=== PATIENT | male | born 1990 | race American Indian/Alaskan Native ===

== ENCOUNTER 2016-06-08 16:52 | Emergency (ER) | payer MEDICAID, OTHER ==
--- NOTE | 2016-06-08 16:56 | EDM.PDOC ---
ED HPI SEPSIS - General Chief Complaint: Fever Stated Complaint: FROM CLINIC Time Seen by Provider: 06/08/16 16:56 Source of Information: Reports: Patient, Old records, Provider (Dr. Campbell), RN, RN notes reviewed History Limitations: Reports: No limitations - History of Present Illness INITIAL COMMENTS - FREE TEXT/NARRATIVE: Patient developed a fever while having his dialysis today. He was sent to the [facility] and under the direction Dr. Palacio (oncologist) via telephone from [place]. He received Rocephin 1 gram IV while at the clinic. Dr. Palacio made arrangements for the patient to be sent to [facility] [place]. On arrival to the emergency room the patient reports fever since dialysis today. Admits to feeling fatigued. Denies any other symptoms. Symptom Onset Date: 06/08/16 Timing/Duration: Reports: Getting worse Severity: severe Improves with: Reports: None Worsens with: Reports: None Associated Symptoms: Reports: no other symptoms - Related Data Allergies/ADRs: Allergies Allergy/AdvReac Type Severity Reaction Status Date / Time paroxetine Allergy Cannot Verified 05/16/16 14:46 Remember sulfamethoxazole Allergy Cannot Verified 05/16/16 14:46 [From ] Remember trimethoprim [From ] Allergy Cannot Verified 05/16/16 14:46 Remember Home Meds: Home Meds Divalproex Sodium [Depakote] 1,000 mg PO BID 01/22/15 [History] Acetaminophen 1,000 mg PO Q6H PRN 08/19/15 [History] Calcium Acetate [PhosLo] 2 tab PO TIDMEALS 08/19/15 [History] Cholecalciferol (Vitamin D3) [Vitamin D3] 2,000 unit PO DAILY PRN 08/19/15 [ History] Lacosamide [Vimpat] 50 mg PO BID 08/19/15 [History] Magnesium Oxide 400 mg PO DAILY 08/19/15 [History] atorvaSTATin [Lipitor] 20 mg PO BEDTIME 12/21/15 [History] Past Medical History HEENT History: Reports: None Cardiovascular History: Reports: Hypertension Respiratory History: Reports: None Gastrointestinal History: Reports: None Genitourinary History: Reports: Dialysis, Other (see below) (Nephrotic syndrome. ESRD or dialysis. Failure of transplanted kidney.) Other Genitourinary History: kidney transplant, kidney biopsy Musculoskeletal History: Reports: None Neurological History: Reports: Seizure Other Neuro History: Last seizure Feb 2014 Psychiatric History: Reports: None Endocrine/Metabolic History: Reports: Obesity/BMI 30+ Hematologic History: Reports: None Immunologic History: Reports: None Oncologic (Cancer) History: Reports: Lymphoma Dermatologic History: Reports: None - Infectious Disease History Infectious Disease History: Reports: Chicken pox - Past Surgical History Cardiovascular Surgical History: Reports: Vascular surgery (V fistula x2.) GI Surgical History: Reports: Other (see below) (hernia repair and splenectomy) Other GI Surgeries/Procedures: splenectomy Other Male Surgeries/Procedures: KIDNEY TRANSPLANT 1995 Social & Family History - Family History Cardiac: Reports: CAD, High cholesterol, Hypertension Respiratory: Reports: COPD GI: Reports: Cholelithiasis Endocrine/Metabolic: Reports: Diabetes, type II, Obesity/MBI 30+ - Tobacco Use Smoking Status *Q: Never Smoker Second Hand Smoke Exposure: No - Alcohol Use Days Per Week of Alcohol Use: 0 - Recreational Drug Use Recreational Drug Use: No Drug Use in Last 12 Months: No - Living Situation & Occupation Living situation: Reports: with family Occupation: disabled ED ROS GENERAL - Review of Systems Review Of Systems: ROS reveals no pertinent complaints other than HPI. ED EXAM, SEPSIS - Physical Exam Exam: See Below Exam Limited By: No limitations General Appearance: obese, other (acutely and chronically ill appearing. Diaphoretic.) Nose: normal inspection Throat/Mouth: Normal voice, No airway compromise Head: atraumatic, normocephalic Neck: normal inspection, supple, non-tender, full range of motion Respiratory/Chest: no respiratory distress, no accessory muscle use, decreased breath sounds, other (Port in the right upper chest, nontender, no erythema.) Cardiovascular: regular rate, rhythm, tachycardia GI/Abdominal: normal bowel sounds, soft, non tender, no distention, other ( obese abdomen.). No: rigid, guarding, rebound Back: normal inspection Extremities: normal inspection, normal capillary refill, other (AV fistula left upper extremity) Neurological: alert, oriented, no motor/sensory deficits Psychiatric: normal affect, normal mood Skin: Warm, Intact, No rash, Diaphoretic Course - Vital Signs Last Recorded V/S: Last Vital Signs Temp 37.2 C 06/08/16 17:02 Pulse 138 H 06/08/16 17:02 Resp 22 H 03/02/17 17:02 BP 109/59 L 06/08/16 17:02 Pulse Ox 100 06/08/16 17:02 - Orders/Labs/Meds Orders: Active Orders 24 hr Category Date Time Status Peripheral IV Care [RC] . DIRECTED Care 06/08/16 17:06 Active Chest 1V Frontal [CR] Stat Exams 06/08/16 17:05 Taken COMPREHENSIVE METABOLIC PN,CMP [CHEM] Stat Lab 06/08/16 17:30 Received LACTIC ACID [CHEM] Stat Lab 06/08/16 17:30 Received Sodium Chloride 0.9% [Saline Flush] Med 06/08/16 17:05 Active 10 ml FLUSH ASDIRECTED PRN Vancomycin [Vancocin] 1 gm Med 06/08/16 17:07 Active Sodium Chloride 0.9% [Normal Saline] 250 ml IV ONETIME Peripheral IV Insertion Adult [OM.PC] Stat Oth 06/08/16 17:05 Ordered Medication Orders Vancomycin HCl 1 gm/ Sodium (Chloride) 250 mls @ 167 mls/hr IV ONETIME ONE Stop: 06/08/16 18:36 Sodium Chloride (Saline Flush) 10 ml FLUSH ASDIRECTED PRN PRN Reason: Keep Vein Open Labs: Laboratory Tests 06/08/16 Range/Units 17:30 WBC 2.9 L (5.0-10.0) 10^3/uL RBC 2.62 L (4.6-6.2) 10^6/uL Hgb 7.6 L (14.0-18.0) g/dL Hct 24.3 L (40.0-54.0) % MCV 92.7 (80-100) fL MCH 29.0 (27.0-34.0) pg MCHC 31.3 L (33.0-35.0) g/dL Plt Count 206 (150-450) 10^3/uL Neut % (Auto) 65.1 (42.2-75.2) % Lymph % (Auto) 28.7 (20.5-50.1) % [place] % (Auto) 1.7 L (2-8) % Eos % (Auto) 4.2 H (1.0-3.0) % Baso % (Auto) 0.3 (0.0-1.0) % Meds: Medications Generic Name Dose Route Start Last Admin Trade Name Freq PRN Reason Stop Dose Admin Vancomycin HCl 1 gm/ Sodium 250 mls @ 167 mls/hr 06/08/16 17:07 Chloride IV 06/08/16 18:36 ONETIME ONE Sodium Chloride 10 ml 06/08/16 17:05 Saline Flush FLUSH ASDIRECTED PRN Keep Vein Open Discontinued Medications Generic Name Dose Route Start Last Admin Trade Name Freq PRN Reason Stop Dose Admin Diphenhydramine HCl 12.5 mg 06/08/16 17:07 06/08/16 17:32 Benadryl IVPUSH 06/08/16 17:08 12.5 mg ONETIME ONE Administration Piperacillin Sod/Tazobactam 50 mls @ 100 mls/hr 06/08/16 17:07 06/08/16 17:33 Sod 4.5 gm/ Sodium Chloride IV 06/08/16 17:36 100 mls/hr ONETIME ONE Administration - Re-Assessments/Exams Free Text/Narrative Re-Assessment/Exam: 06/08/16 17:51 Dr. Campbell was consulted via telephone, he was aware of the patient and had directed the patient to present to the emergency department. He had already arranged an accepting physician at [facility], Dr. Savage. Departure - Departure Time of Disposition: 17:00 Disposition: DC/Tfer to [facility] 02 Condition: critical Clinical Impression: End stage renal failure on dialysis Sepsis Qualifiers: Sepsis type: sepsis due to unspecified organism Qualified Code(s): A41.9 - Sepsis, unspecified organism Non-Hodgkins lymphoma Qualifiers: Non-Hodgkin lymphoma type: unspecified type Lymphoma site: multiple regions Qualified Code(s): C85.98 - Non-Hodgkin lymphoma, unspecified, lymph nodes of multiple sites Forms: ED Department Discharge, Interfacility Transfer EMTALA - My Orders Last 24 Hours: My Active Orders 06/08/16 17:05 Chest 1V Frontal [CR] Stat Sodium Chloride 0.9% [Saline Flush] 10 ml FLUSH ASDIRECTED PRN Peripheral IV Insertion Adult [OM.PC] Stat 06/08/16 17:06 Peripheral IV Care [RC] . DIRECTED 06/08/16 17:07 Vancomycin [Vancocin] 1 gm Sodium Chloride 0.9% [Normal Saline] 250 ml IV ONETIME 06/08/16 17:30 COMPREHENSIVE METABOLIC PN,CMP [CHEM] Stat LACTIC ACID [CHEM] Stat - Assessment/Plan Last 24 Hours: My Active Orders 06/08/16 17:05 Chest 1V Frontal [CR] Stat Sodium Chloride 0.9% [Saline Flush] 10 ml FLUSH ASDIRECTED PRN Peripheral IV Insertion Adult [OM.PC] Stat 06/08/16 17:06 Peripheral IV Care [RC] . DIRECTED 06/08/16 17:07 Vancomycin [Vancocin] 1 gm Sodium Chloride 0.9% [Normal Saline] 250 ml IV ONETIME 06/08/16 17:30 COMPREHENSIVE METABOLIC PN,CMP [CHEM] Stat LACTIC ACID [CHEM] Stat
[2016-06-08] MEDS ORDERED: Sodium Chloride 0.9% 10 ML Syringe FLUSH PRN (17:05)
[2016-06-08] MEDS ORDERED: diphenhydrAMINE 50 MG/ML SDV IVPUSH ONE (17:07)
[2016-06-08] MEDS ORDERED: Piperacillin/Tazobactam 4.5 GM in Sodium Chloride 0.9% 50 ML IV ONE (17:07)
[2016-06-08 17:49] VITALS: BP 95/46
== END 2016-06-08 18:20 ==
LOC: DL.ED 16:52
DX: N18.6 End stage renal disease (principal); C85.98 Non-Hodgkin lymphoma, unspecified, lymph nodes of multiple sites; I10 Essential (primary) hypertension; E66.9 Obesity, unspecified; Z79.899 Other long term (current) drug therapy; Z99.2 Dependence on renal dialysis; Z88.8 Allergy status to other drugs, medicaments and biological substances; Z68.39 Body mass index [BMI] 39.0-39.9, adult
CPT/HCPCS: 36415; 71010; 80053; 83605; 85025; 96365; 96375; 99285; J1200; J2543; J3370; J7050

== ENCOUNTER 2016-09-20 19:25 | Emergency (ER) | payer MEDICAID, OTHER ==
[2016-09-20 19:34] VITALS: BP 136/75
--- NOTE | 2016-09-20 19:57 | EDM.PDOC ---
ED HPI GENERAL MEDICAL PROBLEM - General Chief Complaint: Lower Extremity Injury/Pain Stated Complaint: FELL ON LEG, [id number] Time Seen by Provider: 09/20/16 21:06 Source of Information: Reports: Patient History Limitations: Reports: No Limitations - History of Present Illness INITIAL COMMENTS - FREE TEXT/NARRATIVE: arrival via wheelchair, notes hx of chemo for nonhodgkins lymphoma, has had weakness over past couple of weeks, no dizziness, legs just give out, today fell onto concrete directly on left knee. Pain since. Denies other injury. Recent transfusion on Sunday. Onset: Today Left Knee Pain Score (Numeric/FACES): 5 - Related Data Allergies Allergy/AdvReac Type Severity Reaction Status Date / Time paroxetine Allergy Cannot Verified 09/20/16 19:37 Remember sulfamethoxazole Allergy Cannot Verified 09/20/16 19:37 [From ] Remember trimethoprim [From ] Allergy Cannot Verified 09/20/16 19:37 Remember Home Meds: Home Meds Divalproex Sodium [Depakote] 1,000 mg PO BID 01/22/15 [History] Acetaminophen 1,000 mg PO Q6H PRN 08/19/15 [History] Calcium Acetate [PhosLo] 3 tab PO TIDMEALS 08/19/15 [History] Cholecalciferol (Vitamin D3) [Vitamin D3] 2,000 unit PO DAILY PRN 08/19/15 [ History] Lacosamide [Vimpat] 50 mg PO BID 08/19/15 [History] atorvaSTATin [Lipitor] 20 mg PO BEDTIME 12/21/15 [History] Cinacalcet [Sensipar] 30 mg PO DAILY 06/08/16 [History] Past Medical History HEENT History: Reports: None Cardiovascular History: Reports: Hypertension Respiratory History: Reports: None Gastrointestinal History: Reports: None Genitourinary History: Reports: Dialysis Other Genitourinary History: kidney transplant, kidney biopsy Musculoskeletal History: Reports: None Neurological History: Reports: Seizure Other Neuro History: Last seizure Feb 2014 Psychiatric History: Reports: None Endocrine/Metabolic History: Reports: Obesity/BMI 30+ Hematologic History: Reports: None Immunologic History: Reports: None Oncologic (Cancer) History: Reports: Lymphoma Dermatologic History: Reports: None - Infectious Disease History Infectious Disease History: Reports: Chicken Pox - Past Surgical History Cardiovascular Surgical History: Reports: Vascular Surgery Social & Family History - Family History Cardiac: Reports: CAD, High Cholesterol, Hypertension Respiratory: Reports: COPD GI: Reports: Cholelithiasis Endocrine/Metabolic: Reports: Diabetes, type II, Obesity/MBI 30+ - Tobacco Use Smoking Status *Q: Unknown Ever Smoked Second Hand Smoke Exposure: No - Caffeine Use Caffeine Use: Reports: Soda - Alcohol Use Days Per Week of Alcohol Use: 0 - Recreational Drug Use Recreational Drug Use: No Drug Use in Last 12 Months: No - Living Situation & Occupation Living situation: Reports: with Family Occupation: Disabled Review of Systems - Review of Systems Review Of Systems: See Below Constitutional: Reports: Weakness Eyes: Reports: No Symptoms Ears: Reports: No Symptoms Nose: Reports: No Symptoms Mouth/Throat: Reports: No Symptoms Respiratory: Reports: No Symptoms Cardiovascular: Reports: No Symptoms GI/Abdominal: Reports: No Symptoms Musculoskeletal: Reports: Joint Pain (knee) Skin: Reports: Wound (abrasion left knee cap) Neurological: Reports: No Symptoms, Weakness (legs give out) ED EXAM, GENERAL - Physical Exam Exam: See Below Exam Limited By: No Limitations General Appearance: Alert, Mild Distress, Obese Eye Exam: Bilateral Eye: PERRL Ears: Normal External Exam Neck: Normal Inspection Respiratory/Chest: No Respiratory Distress, Lungs Clear Cardiovascular: Normal Peripheral Pulses, Regular Rate, Rhythm Extremities: Other (left knee pain with movment, pain with palpation to proximal tibu and medial stress, limited ROM due to pain.) Skin Exam: Wound/Incision (3cm circular abrasion to left knee, ) Course - Vital Signs Last Recorded V/S: Last Vital Signs Temp 98.0 F 09/20/16 19:33 Pulse 88 09/20/16 19:33 Resp 16 09/20/16 19:33 BP 136/75 09/20/16 19:33 Pulse Ox 100 09/20/16 19:33 - Orders/Labs/Meds Orders: Active Orders 24 hr Category Date Time Status Knee 3V Lt [CR] Urgent Exams 09/20/16 19:57 Taken Labs: Laboratory Tests 09/20/16 09/20/16 Range/Units 20:10 20:10 WBC 11.2 H (5.0-10.0) 10^3/uL RBC 2.86 L (4.6-6.2) 10^6/uL Hgb 9.0 L (14.0-18.0) g/dL Hct 28.8 L (40.0-54.0) % MCV 100.7 H (80-100) fL MCH 31.5 (27.0-34.0) pg MCHC 31.3 L (33.0-35.0) g/dL Plt Count 418 (150-450) 10^3/uL Neut % (Auto) 72.9 (42.2-75.2) % Lymph % (Auto) 14.8 L (20.5-50.1) % [place] % (Auto) 11.5 H (2-8) % Eos % (Auto) 0.6 L (1.0-3.0) % Baso % (Auto) 0.2 (0.0-1.0) % Add Manual Diff Yes Neutrophils % (Manual) 76 % Band Neutrophils % 2 % Lymphocytes % (Manual) 14 % Monocytes % (Manual) 8 % Sodium 140 (135-145) mmol/L Potassium 3.9 (3.6-5.0) mmol/L Chloride 106 (101-111) mmol/L Carbon Dioxide 20.0 L (21.0-31.0) mmol/L Anion Gap 17.9 BUN 41 H (7-18) mg/dL Creatinine 9.8 H (0.6-1.3) mg/dL Est Cr Clr Drug Dosing 9.76 mL/min Estimated GFR (MDRD) 6 BUN/Creatinine Ratio 4.18 Glucose 101 (74-105) mg/dL Calcium 9.0 (8.4-10.2) mg/dl Total Bilirubin 0.4 (0.2-1.0) mg/dL AST 27 (10-42) IU/L ALT 19 (10-60) IU/L Alkaline Phosphatase 109 (42-121) IU/L Total Protein 7.0 (6.7-8.2) g/dl Albumin 3.8 (3.2-5.5) g/dl Globulin 3.2 Albumin/Globulin Ratio 1.19 Meds: Medications Discontinued Medications Generic Name Dose Route Start Last Admin Trade Name Freq PRN Reason Stop Dose Admin Bacitracin 1 dose 09/20/16 21:05 09/20/16 21:14 Bacitracin Oint 1 Gm TOP 09/20/16 21:06 1 dose ONETIME ONE Administration Oxycodone/Acetaminophen 1 tab 06/14/17 20:13 09/20/16 20:23 Percocet 325-5 Mg PO 09/20/16 20:14 1 tab ONETIME ONE Administration - Radiology Interpretation Free Text/Narrative:: xray right knee negative for fracture or dislocation Departure - Departure Time of Disposition: 21:20 Disposition: Home, Self-Care 01 Condition: Fair Clinical Impression: Abrasion, End stage renal failure on dialysis, History of end stage renal disease Left knee pain Qualifiers: Chronicity: acute Qualified Code(s): M25.562 - Pain in left knee Fall Qualifiers: Encounter type: initial encounter Qualified Code(s): W19.XXXA - Unspecified fall, initial encounter Non-Hodgkins lymphoma Qualifiers: Non-Hodgkin lymphoma type: unspecified type Lymphoma site: multiple regions Qualified Code(s): C85.98 - Non-Hodgkin lymphoma, unspecified, lymph nodes of multiple sites - Discharge Information Instructions: Crutch Use, Tryx-ix-[id number] Forms: ED Department Discharge Additional Instructions: wash abrasion three times daily with soap and water cover with antibiotic ointment and dressing, monitor for infection follow up with primary provider regarding therapy and possible walker for stability ice pack to knee sotne wrap wound check on sunday in clinic- tylenol for discomfort - My Orders Last 24 Hours: My Active Orders 09/20/16 19:57 Knee 3V Lt [CR] Urgent - Assessment/Plan Last 24 Hours: My Active Orders 09/20/16 19:57 Knee 3V Lt [CR] Urgent
[2016-09-20] MEDS ORDERED: Acetaminophen/oxyCODONE 325-5 MG Tab PO ONE (20:13)
[2016-09-20] MEDS ORDERED: Bacitracin Oint 1 GM U/D Packet TOP ONE (21:05)
== END 2016-09-20 21:24 | disposition home or self-care (01) ==
LOC: DL.ED 19:25
DX: S80.212A Abrasion, left knee, initial encounter (principal); I12.0 Hypertensive chronic kidney disease with stage 5 chronic kidney disease or end stage renal disease; N18.6 End stage renal disease; E66.9 Obesity, unspecified; C85.98 Non-Hodgkin lymphoma, unspecified, lymph nodes of multiple sites; Z88.8 Allergy status to other drugs, medicaments and biological substances; Z88.2 Allergy status to sulfonamides; Z79.899 Other long term (current) drug therapy; Z94.0 Kidney transplant status; W19.XXXA Unspecified fall, initial encounter; Z99.2 Dependence on renal dialysis
CPT/HCPCS: 36415; 73562; 80053; 85025; 99283; A9270

== ENCOUNTER 2017-11-20 06:33 | Emergency (ER) | payer MEDICARE, MEDICAID ==
[2017-11-20 06:40] VITALS: BP 147/79
[2017-11-20] MEDS ORDERED: Acetaminophen 325 MG Tab PO ONE (06:45)
[2017-11-20 07:27] LABS: ANION GAP 23.6
--- NOTE | 2017-11-20 07:32 | EDM.PDOC ---
ED HPI GENERAL MEDICAL PROBLEM - General Chief Complaint: Abdominal Pain Stated Complaint: [id number] NOT FEELING GOOD COUGH SIDE/BACK PAIN Time Seen by Provider: 11/20/17 07:00 Source of Information: Reports: Patient History Limitations: Reports: No Limitations - History of Present Illness INITIAL COMMENTS - FREE TEXT/NARRATIVE: This 27 yo male patient reports to the ED feeling ill for the past 4 days. The patient reports he is a dialysis patient (in [place]) with his last run of dialysis being last . The patient reports he missed his treatment Sunday due to not feeling well. The patient has not been seen in the Clinic and has not attempted to get an appointment. The patient reports that he does not have a primary care provider and last attempted to get established with a primary about 2 months ago through the [facility]. The patient currently reports diffuse right sided abdominal pain. Onset Date: 11/16/17 Duration: Constant, Getting Worse Location: Reports: Abdomen (Right lower quadrant pain) Quality: Reports: Ache, Sharp Severity: Severe Improves with: Reports: None Worsens with: Reports: None Context: Reports: Other Right Lower Abdomen Pain Score (Numeric/FACES): 7 - Related Data Allergies Allergy/AdvReac Type Severity Reaction Status Date / Time paroxetine Allergy Cannot Verified 11/20/17 06:40 Remember sulfamethoxazole Allergy Cannot Verified 11/20/17 06:40 [From ] Remember trimethoprim [From ] Allergy Cannot Verified 11/20/17 06:40 Remember Home Meds: Home Meds Acetaminophen 1,000 mg PO Q6H PRN 08/19/15 [History] Calcium Acetate [PhosLo] 3 tab PO TIDMEALS 08/19/15 [History] Cholecalciferol (Vitamin D3) [Vitamin D3] 2,000 unit PO DAILY PRN 08/19/15 [ History] Cinacalcet [Sensipar] 30 mg PO DAILY 06/08/16 [History] Apixaban [Eliquis] 5 mg PO DAILY 11/20/17 [History] Past Medical History HEENT History: Reports: None Cardiovascular History: Reports: Hypertension Respiratory History: Reports: None Gastrointestinal History: Reports: None Genitourinary History: Reports: Dialysis Other Genitourinary History: kidney transplant, kidney biopsy Musculoskeletal History: Reports: None Neurological History: Reports: Seizure Other Neuro History: Last seizure Feb 2014 Psychiatric History: Reports: None Endocrine/Metabolic History: Reports: Obesity/BMI 30+ Hematologic History: Reports: None Immunologic History: Reports: Solid Organ Transplant Oncologic (Cancer) History: Reports: Lymphoma Dermatologic History: Reports: None - Infectious Disease History Infectious Disease History: Reports: Chicken Pox - Past Surgical History Cardiovascular Surgical History: Reports: Vascular Surgery, Other (See Below) Other Cardiovascular Surgeries/Procedures: fisstula surgeries GI Surgical History: Reports: Other (See Below) Other GI Surgeries/Procedures: spleen taken out Social & Family History - Family History Family Medical History: Noncontributory Cardiac: Reports: CAD, High Cholesterol, Hypertension Respiratory: Reports: COPD GI: Reports: Cholelithiasis Endocrine/Metabolic: Reports: Diabetes, type II, Obesity/MBI 30+ - Tobacco Use Smoking Status *Q: Never Smoker Second Hand Smoke Exposure: No - Caffeine Use Caffeine Use: Reports: Soda - Recreational Drug Use Recreational Drug Use: No - Living Situation & Occupation Living situation: Reports: with Family Occupation: Disabled ED ROS GENERAL - Review of Systems Review Of Systems: ROS reveals no pertinent complaints other than HPI. ED EXAM, GENERAL - Physical Exam Exam: See Below Exam Limited By: No Limitations General Appearance: Alert, WD/WN, Moderate Distress Eye Exam: Bilateral Eye: EOMI, Normal Inspection, PERRL Ears: Normal External Exam, Normal Canal, Hearing Grossly Normal, Normal TMs Nose: Normal Inspection, Normal Mucosa, No Blood Throat/Mouth: Normal Inspection, Normal Lips, Normal Teeth, Normal Gums, Normal Oropharynx, Normal Voice, No Airway Compromise Head: Atraumatic, Normocephalic Neck: Normal Inspection, Supple, Non-Tender, Full Range of Motion Respiratory/Chest: No Respiratory Distress, Lungs Clear, Normal Breath Sounds, No Accessory Muscle Use, Chest Non-Tender Cardiovascular: Normal Peripheral Pulses, Regular Rate, Rhythm, No Edema, No Gallop, No JVD, No Murmur, No Rub GI/Abdominal: Normal Bowel Sounds, Guarding (right lower quatrant), Rebound, Tender, Other (positive psoas) (Male) Exam: Deferred Rectal (Males) Exam: Deferred Back Exam: Normal Inspection, Full Range of Motion, NT Extremities: Normal Inspection, Normal Range of Motion, Non-Tender, Normal Capillary Refill, No Pedal Edema Neurological: Alert, Oriented, CN II-XII Intact Psychiatric: Normal Affect, Normal Mood Skin Exam: Warm, Dry, Intact, Normal Color, No Rash Lymphatic: No Adenopathy Course - Vital Signs Last Recorded V/S: Last Vital Signs Temp 40 C H 11/20/17 06:36 Pulse 123 H 11/20/17 06:36 Resp 18 11/20/17 06:36 BP 147/79 H 11/20/17 06:36 Pulse Ox 97 11/20/17 06:36 - Orders/Labs/Meds Orders: Active Orders 24 hr Category Date Time Status Chest 1V Frontal [CR] Urgent Exams 11/20/17 06:43 Taken AMYLASE [CHEM] Stat Lab 11/20/17 06:51 Received COMPREHENSIVE METABOLIC PN,CMP [CHEM] Stat Lab 11/20/17 06:51 Received CULTURE BLOOD [BC] Stat Lab 11/20/17 06:51 Received CULTURE BLOOD [BC] Stat Lab 11/20/17 06:57 Received LACTIC ACID [CHEM] Stat Lab 11/20/17 06:51 Received LIPASE [CHEM] Stat Lab 11/20/17 06:51 Received Blood Culture x2 Reflex Set [OM.PC] Stat Oth 11/20/17 06:43 Ordered Labs: Laboratory Tests 11/20/17 Range/Units 06:51 WBC 20.2 H (5.0-10.0) 10^3/uL RBC 3.41 L (4.6-6.2) 10^6/uL Hgb 9.8 L (14.0-18.0) g/dL Hct 30.9 L (40.0-54.0) % MCV 90.6 D (80-100) fL MCH 28.7 (27.0-34.0) pg MCHC 31.7 L (33.0-35.0) g/dL Plt Count 295 D (150-450) 10^3/uL Neut % (Auto) 81.1 H (42.2-75.2) % Lymph % (Auto) 10.5 L (20.5-50.1) % [place] % (Auto) 7.6 (2-8) % Eos % (Auto) 0.7 L (1.0-3.0) % Baso % (Auto) 0.1 (0.0-1.0) % Meds: Medications Discontinued Medications Generic Name Dose Route Start Last Admin Trade Name Freq PRN Reason Stop Dose Admin Acetaminophen 650 mg 11/20/17 06:45 11/20/17 06:53 Tylenol PO 11/20/17 06:46 650 mg NOW ONE Administration Departure - Departure Time of Disposition: 07:58 Disposition: DC/Tfer to Acute Hospital 02 Condition: Poor Clinical Impression: Missed dialysis, Right lower quadrant abdominal pain Leukocytosis Qualifiers: Leukocytosis type: bandemia Qualified Code(s): D72.825 - Bandemia - Discharge Information *PRESCRIPTION DRUG MONITORING PROGRAM REVIEWED*: Not Applicable *COPY OF PRESCRIPTION DRUG MONITORING REPORT IN PATIENT CATHY: Not Applicable Forms: Interfacility Transfer EMTALA Care Plan Goals: Discussed the patient's history, examination and lab results with Dr. Toledo ( [facility] Emergency Department). Dr. Toledo accepted the patient for continued evaluation and further management. The patient will be transported by [facility].
[2017-11-20] MEDS ORDERED: HYDROmorphone 0.5 MG/0.5 ML Syringe IVPUSH ONE (07:53)
== END 2017-11-20 08:28 ==
LOC: DL.ED 06:33
DX: R10.31 Right lower quadrant pain (principal); D72.825 Bandemia; Z91.15 Patient's noncompliance with renal dialysis; I10 Essential (primary) hypertension; Z79.899 Other long term (current) drug therapy; Z88.2 Allergy status to sulfonamides; Z88.8 Allergy status to other drugs, medicaments and biological substances
CPT/HCPCS: 36415; 71045; 80053; 82150; 83605; 83690; 85025; 87040; 96374; 99284; 99285; A9270; J1170

== ENCOUNTER 2019-03-07 18:37 | Emergency (ER) | payer MEDICARE, MEDICAID ==
[2019-03-07] MEDS ORDERED: Ondansetron 4 MG/2 ML SDV IV ONE (19:03)
[2019-03-07] MEDS ORDERED: Sodium Chloride 0.9% 1,000 ML IV ONE (19:06)
[2019-03-07] MEDS: Morphine 2 MG/ML Syringe IVPUSH ONE ×2 (19:08→19:38)
--- NOTE | 2019-03-07 19:08 | EDM.PDOC ---
ED HPI GENERAL MEDICAL PROBLEM - General Chief Complaint: Cardiovascular Problem Stated Complaint: BACK PAIN, BLOOD PRESSURE CHECK UP PER PT Time Seen by Provider: 03/07/19 19:06 Source of Information: Reports: Patient History Limitations: Reports: No Limitations - History of Present Illness INITIAL COMMENTS - FREE TEXT/NARRATIVE: states been having LBP all day. he carried his big dog upstairs last night and knew he shouldn't. pain got worse tonight made him vomit and got sweaty and now has blurred vision. tried tylenol without relief. denies CP/SOB/BAIRES. denies heart /lung problems. only problem is his low back pain. states had kidney transplant @ [place] in 1995 and has 3 kidneys and on dialysis T--SA @ [place]. 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 states his own kidneys shut down from nephrotic syndrome. Left Lower Back Pain Score (Numeric/FACES): 10 - Related Data Allergies Allergy/AdvReac Type Severity Reaction Status Date / Time paroxetine Allergy Cannot Verified 11/20/17 06:40 Remember sulfamethoxazole Allergy Cannot Verified 11/20/17 06:40 [From ] Remember trimethoprim [From ] Allergy Cannot Verified 11/20/17 06:40 Remember Home Meds: Home Meds Acetaminophen 1,000 mg PO Q6H PRN 08/19/15 [History] Calcium Acetate [PhosLo] 3 tab PO TIDMEALS 08/19/15 [History] Cholecalciferol (Vitamin D3) [Vitamin D3] 2,000 unit PO DAILY PRN 08/19/15 [ History] Cinacalcet [Sensipar] 30 mg PO DAILY 06/08/16 [History] Apixaban [Eliquis] 5 mg PO DAILY 11/20/17 [History] Past Medical History HEENT History: Reports: None Cardiovascular History: Reports: Hypertension Respiratory History: Reports: None Gastrointestinal History: Reports: None Genitourinary History: Reports: Dialysis Other Genitourinary History: kidney transplant, kidney biopsy Musculoskeletal History: Reports: None Neurological History: Reports: Seizure Other Neuro History: Last seizure Feb 2014 Psychiatric History: Reports: None Endocrine/Metabolic History: Reports: Obesity/BMI 30+ Hematologic History: Reports: None Immunologic History: Reports: Solid Organ Transplant Oncologic (Cancer) History: Reports: Lymphoma Dermatologic History: Reports: None - Infectious Disease History Infectious Disease History: Reports: Chicken Pox - Past Surgical History Cardiovascular Surgical History: Reports: Vascular Surgery, Other (See Below) Other Cardiovascular Surgeries/Procedures: fisstula surgeries GI Surgical History: Reports: Other (See Below) Other GI Surgeries/Procedures: spleen taken out Social & Family History - Family History Family Medical History: Noncontributory Cardiac: Reports: CAD, High Cholesterol, Hypertension Respiratory: Reports: COPD GI: Reports: Cholelithiasis Endocrine/Metabolic: Reports: Diabetes, type II, Obesity/MBI 30+ - Tobacco Use Smoking Status *Q: Never Smoker Second Hand Smoke Exposure: No - Caffeine Use Caffeine Use: Reports: Soda - Recreational Drug Use Recreational Drug Use: No - Living Situation & Occupation Living situation: Reports: with Family Occupation: Disabled ED ROS GENERAL - Review of Systems Review Of Systems: Comprehensive ROS is negative, except as noted in HPI. ED EXAM, GENERAL - Physical Exam Exam: See Below Exam Limited By: No Limitations General Appearance: Alert, WD/WN, Anxious, Moderate Distress, Other (LBP) Ears: Hearing Grossly Normal Throat/Mouth: Normal Voice, No Airway Compromise Head: Atraumatic Neck: Non-Tender, Full Range of Motion Course - Vital Signs Last Recorded V/S: Last Vital Signs Temp 38.6 C H 03/07/19 21:35 Pulse 152 H 03/07/19 21:43 Resp 26 H 03/07/19 21:43 BP 78/64 L 03/07/19 21:43 Pulse Ox 100 03/07/19 21:43 - Orders/Labs/Meds Orders: Active Orders 24 hr Category Date Time Status EKG Documentation Completion [RC] STAT Care 03/07/19 18:51 Active Cristina Catheter Insertion [Insert Urinary Catheter] [OM. Care 03/07/19 21:15 Ordered PC] Q24H Urinary Catheter Assessment [RC] ASDIRECTED Care 03/07/19 21:14 Active CULTURE BLOOD [BC] Stat Lab 03/07/19 21:50 Received CULTURE URINE [RM] Stat Lab 03/07/19 21:35 Received Norepinephrine [Levophed] 4 mg Med 03/07/19 19:30 Active Dextrose 5% in Water 246 ml IV TITRATE Sodium Chloride 0.9% [Normal Saline] 1,000 ml Med 03/07/19 20:30 Active IV ASDIRECTED Sodium Chloride 0.9% [Normal Saline] 1,000 ml Med 03/07/19 21:15 Active IV ASDIRECTED Medication Orders Norepinephrine Bitartrate 4 mg (/ Dextrose/Water) 250 mls @ 15 mls/hr IV TITRATE GRAYSON; Protocol Last Titration: 03/07/19 20:25 Dose: 30 mcg/min, 112.5 mls/hr Titration: 03/07/19 20:19 Dose: 26 mcg/min, 97.5 mls/hr Titration: 03/07/19 19:59 Dose: 22 mcg/min, 82.5 mls/hr Titration: 03/07/19 19:52 Dose: 14 mcg/min, 52.5 mls/hr Titration: 03/07/19 19:47 Dose: 10 mcg/min, 37.5 mls/hr Titration: 03/07/19 19:42 Dose: 8 mcg/min, 30 mls/hr Titration: 03/07/19 19:37 Dose: 6 mcg/min, 22.5 mls/hr Admin: 03/07/19 19:22 Dose: 4 mcg/min, 15 mls/hr Sodium Chloride (Normal Saline) 1,000 mls @ 150 mls/hr IV ASDIRECTED GRAYSON Last Admin: 03/07/19 20:32 Dose: 999 mls/hr Sodium Chloride (Normal Saline) 1,000 mls @ 500 mls/hr IV ASDIRECTED GRAYSON Last Admin: 03/07/19 21:19 Dose: 500 mls/hr Labs: Laboratory Tests 03/07/19 03/07/19 03/07/19 Range/Units 18:50 18:50 18:50 WBC 15.7 H (5.0-10.0) 10^3/uL RBC 4.94 (4.6-6.2) 10^6/uL Hgb 16.6 D (14.0-18.0) g/dL Hct 48.5 (40.0-54.0) % MCV 98.2 D (80-100) fL MCH 33.6 (27.0-34.0) pg MCHC 34.2 (33.0-35.0) g/dL Plt Count 56 L D (150-450) 10^3/uL Neut % (Auto) 90.7 H (42.2-75.2) % Lymph % (Auto) 7.9 L (20.5-50.1) % [place] % (Auto) 1.0 L (2-8) % Eos % (Auto) 0.3 L (1.0-3.0) % Baso % (Auto) 0.1 (0.0-1.0) % Add Manual Diff Yes Neutrophils % (Manual) 64 (42-75) % Band Neutrophils % 21 % Lymphocytes % (Manual) 11 L (20-50) % Atypical Lymphs % 0 % Monocytes % (Manual) 3 (2-8) % Eosinophils % (Manual) 1 (1-3) % Basophils % (Manual) 0 Platelet Estimate Decreased Giant Platelets Few D-Dimer, Quantitative > 5000 H (0-400) ng/mL ABG pH (7.35-7.45) ABG pCO2 (35-45) mmHg ABG pO2 (70-100) mmHg ABG HCO3 (22-26) mmol/L ABG O2 Saturation (95-100) % ABG Base Excess ((-2)-(+3)) mmol/L Bala Test O2 Delivery Device Oxygen Flow Rate Sodium 135 (135-145) mmol/L Potassium 4.0 (3.6-5.0) mmol/L Chloride 95 L (101-111) mmol/L Carbon Dioxide 20.0 L (21.0-31.0) mmol/L Anion Gap 24.0 BUN 66 H D (7-18) mg/dL Creatinine 11.6 H D (0.6-1.3) mg/dL Est Cr Clr Drug Dosing 8.10 mL/min Estimated GFR (MDRD) 5 BUN/Creatinine Ratio 5.68 Glucose 100 (74-105) mg/dL POC Glucose (70-105) mg/dl Lactic Acid (0.5-2.2) mmol/L Calcium 10.2 (8.4-10.2) mg/dl Total Bilirubin 1.3 H (0.2-1.0) mg/dL AST 43 H (10-42) IU/L ALT 52 (10-60) IU/L Alkaline Phosphatase 667 H (42-121) IU/L Troponin I 0.03 H* (0.00-0.02) ng/ml B-Natriuretic Peptide (0-100) pg/ml Total Protein 8.2 (6.7-8.2) g/dl Albumin 4.5 (3.2-5.5) g/dl Globulin 3.7 Albumin/Globulin Ratio 1.22 Urine Color (YELLOW) Urine Appearance (CLEAR) Urine pH (5.0-9.0) Ur Specific [place] (1.005-1.030) Urine Protein (NEGATIVE) Urine Glucose (UA) (NEGATIVE) Urine Ketones (NEGATIVE) Urine Occult Blood (NEGATIVE) Urine Nitrite (NEGATIVE) Urine Bilirubin (NEGATIVE) Urine Urobilinogen (0.2-1.0) mg/dL Ur Leukocyte Esterase (NEGATIVE) Urine RBC /HPF Urine WBC (0-5/HPF) /HPF Ur Epithelial Cells (NOT SEEN) /HPF Urine Bacteria (0-FEW/HPF) /HPF Urine Mucus (NOT SEEN) /LPF Urine Opiates Screen (NEGATIVE) Ur Oxycodone Screen (NEGATIVE) Urine Methadone Screen (NEGATIVE) Ur Barbiturates Screen (NEGATIVE) U Tricyclic Antidepress (NEGATIVE) Ur Phencyclidine Scrn (NEGATIVE) Ur Amphetamine Screen (NEGATIVE) U Methamphetamines Scrn (NEGATIVE) Urine MDMA Screen (NEGATIVE) U Benzodiazepines Scrn (NEGATIVE) Urine Cocaine Screen (NEGATIVE) U Marijuana (THC) Screen (NEGATIVE) 03/07/19 03/07/19 03/07/19 Range/Units 18:50 18:50 20:31 WBC (5.0-10.0) 10^3/uL RBC (4.6-6.2) 10^6/uL Hgb (14.0-18.0) g/dL Hct (40.0-54.0) % MCV (80-100) fL MCH (27.0-34.0) pg MCHC (33.0-35.0) g/dL Plt Count (150-450) 10^3/uL Neut % (Auto) (42.2-75.2) % Lymph % (Auto) (20.5-50.1) % [place] % (Auto) (2-8) % Eos % (Auto) (1.0-3.0) % Baso % (Auto) (0.0-1.0) % Add Manual Diff Neutrophils % (Manual) (42-75) % Band Neutrophils % % Lymphocytes % (Manual) (20-50) % Atypical Lymphs % % Monocytes % (Manual) (2-8) % Eosinophils % (Manual) (1-3) % Basophils % (Manual) Platelet Estimate Giant Platelets D-Dimer, Quantitative (0-400) ng/mL ABG pH (7.35-7.45) ABG pCO2 (35-45) mmHg ABG pO2 (70-100) mmHg ABG HCO3 (22-26) mmol/L ABG O2 Saturation (95-100) % ABG Base Excess ((-2)-(+3)) mmol/L Bala Test O2 Delivery Device Oxygen Flow Rate Sodium (135-145) mmol/L Potassium (3.6-5.0) mmol/L Chloride (101-111) mmol/L Carbon Dioxide (21.0-31.0) mmol/L Anion Gap BUN (7-18) mg/dL Creatinine (0.6-1.3) mg/dL Est Cr Clr Drug Dosing mL/min Estimated GFR (MDRD) BUN/Creatinine Ratio Glucose (74-105) mg/dL POC Glucose 86 (70-105) mg/dl Lactic Acid 3.3 H (0.5-2.2) mmol/L Calcium (8.4-10.2) mg/dl Total Bilirubin (0.2-1.0) mg/dL AST (10-42) IU/L ALT (10-60) IU/L Alkaline Phosphatase (42-121) IU/L Troponin I (0.00-0.02) ng/ml B-Natriuretic Peptide 34 (0-100) pg/ml Total Protein (6.7-8.2) g/dl Albumin (3.2-5.5) g/dl Globulin Albumin/Globulin Ratio Urine Color (YELLOW) Urine Appearance (CLEAR) Urine pH (5.0-9.0) Ur Specific [place] (1.005-1.030) Urine Protein (NEGATIVE) Urine Glucose (UA) (NEGATIVE) Urine Ketones (NEGATIVE) Urine Occult Blood (NEGATIVE) Urine Nitrite (NEGATIVE) Urine Bilirubin (NEGATIVE) Urine Urobilinogen (0.2-1.0) mg/dL Ur Leukocyte Esterase (NEGATIVE) Urine RBC /HPF Urine WBC (0-5/HPF) /HPF Ur Epithelial Cells (NOT SEEN) /HPF Urine Bacteria (0-FEW/HPF) /HPF Urine Mucus (NOT SEEN) /LPF Urine Opiates Screen (NEGATIVE) Ur Oxycodone Screen (NEGATIVE) Urine Methadone Screen (NEGATIVE) Ur Barbiturates Screen (NEGATIVE) U Tricyclic Antidepress (NEGATIVE) Ur Phencyclidine Scrn (NEGATIVE) Ur Amphetamine Screen (NEGATIVE) U Methamphetamines Scrn (NEGATIVE) Urine MDMA Screen (NEGATIVE) U Benzodiazepines Scrn (NEGATIVE) Urine Cocaine Screen (NEGATIVE) U Marijuana (THC) Screen (NEGATIVE) 03/07/19 03/07/19 03/07/19 Range/Units 20:50 21:35 21:35 WBC (5.0-10.0) 10^3/uL RBC (4.6-6.2) 10^6/uL Hgb (14.0-18.0) g/dL Hct (40.0-54.0) % MCV (80-100) fL MCH (27.0-34.0) pg MCHC (33.0-35.0) g/dL Plt Count (150-450) 10^3/uL Neut % (Auto) (42.2-75.2) % Lymph % (Auto) (20.5-50.1) % [place] % (Auto) (2-8) % Eos % (Auto) (1.0-3.0) % Baso % (Auto) (0.0-1.0) % Add Manual Diff Neutrophils % (Manual) (42-75) % Band Neutrophils % % Lymphocytes % (Manual) (20-50) % Atypical Lymphs % % Monocytes % (Manual) (2-8) % Eosinophils % (Manual) (1-3) % Basophils % (Manual) Platelet Estimate Giant Platelets D-Dimer, Quantitative (0-400) ng/mL ABG pH 7.34 L (7.35-7.45) ABG pCO2 28 L (35-45) mmHg ABG pO2 76 (70-100) mmHg ABG HCO3 14.6 L (22-26) mmol/L ABG O2 Saturation 93 L (95-100) % ABG Base Excess -9 L ((-2)-(+3)) mmol/L Bala Test Rb O2 Delivery Device Non rebr mask Oxygen Flow Rate 3 Sodium (135-145) mmol/L Potassium (3.6-5.0) mmol/L Chloride (101-111) mmol/L Carbon Dioxide (21.0-31.0) mmol/L Anion Gap BUN (7-18) mg/dL Creatinine (0.6-1.3) mg/dL Est Cr Clr Drug Dosing mL/min Estimated GFR (MDRD) BUN/Creatinine Ratio Glucose (74-105) mg/dL POC Glucose (70-105) mg/dl Lactic Acid (0.5-2.2) mmol/L Calcium (8.4-10.2) mg/dl Total Bilirubin (0.2-1.0) mg/dL AST (10-42) IU/L ALT (10-60) IU/L Alkaline Phosphatase (42-121) IU/L Troponin I (0.00-0.02) ng/ml B-Natriuretic Peptide (0-100) pg/ml Total Protein (6.7-8.2) g/dl Albumin (3.2-5.5) g/dl Globulin Albumin/Globulin Ratio Urine Color Yellow (YELLOW) Urine Appearance Cloudy (CLEAR) Urine pH 7.0 (5.0-9.0) Ur Specific [place] >= 1.030 (1.005-1.030) Urine Protein 100 H (NEGATIVE) Urine Glucose (UA) 250 H (NEGATIVE) Urine Ketones Negative (NEGATIVE) Urine Occult Blood Large H (NEGATIVE) Urine Nitrite Negative (NEGATIVE) Urine Bilirubin Negative (NEGATIVE) Urine Urobilinogen 0.2 (0.2-1.0) mg/dL Ur Leukocyte Esterase Moderate H (NEGATIVE) Urine RBC 5-10 H /HPF Urine WBC Packed H (0-5/HPF) /HPF Ur Epithelial Cells Moderate H (NOT SEEN) /HPF Urine Bacteria Many H (0-FEW/HPF) /HPF Urine Mucus Moderate H (NOT SEEN) /LPF Urine Opiates Screen Negative (NEGATIVE) Ur Oxycodone Screen Negative (NEGATIVE) Urine Methadone Screen Negative (NEGATIVE) Ur Barbiturates Screen Negative (NEGATIVE) U Tricyclic Antidepress Negative (NEGATIVE) Ur Phencyclidine Scrn Negative (NEGATIVE) Ur Amphetamine Screen Negative (NEGATIVE) U Methamphetamines Scrn Negative (NEGATIVE) Urine MDMA Screen Negative (NEGATIVE) U Benzodiazepines Scrn Negative (NEGATIVE) Urine Cocaine Screen Negative (NEGATIVE) U Marijuana (THC) Screen Negative (NEGATIVE) Meds: Medications Generic Name Dose Route Start Last Admin Trade Name Freq PRN Reason Stop Dose Admin Norepinephrine Bitartrate 4 mg 250 mls @ 15 mls/hr 03/07/19 19:30 03/07/19 20 :25 / Dextrose/Water IV 30 mcg/min TITRATE GRAYSON 112.5 mls/hr Titration Protocol 4 MCG/MIN Sodium Chloride 1,000 mls @ 150 mls/hr 03/07/19 20:30 03/07/19 20:32 Normal Saline IV 999 mls/hr ASDIRECTED GRAYSON Administration Sodium Chloride 1,000 mls @ 500 mls/hr 03/07/19 21:15 03/07/19 21:19 Normal Saline IV 500 mls/hr ASDIRECTED GRAYSON Administration Discontinued Medications Generic Name Dose Route Start Last Admin Trade Name Mayur PRN Reason Stop Dose Admin Acetaminophen 500 mg 03/07/19 21:31 03/07/19 21:35 Tylenol Extra Strength PO 03/07/19 21:32 500 mg ONETIME ONE Administration Fentanyl 75 mcg 03/07/19 19:28 03/07/19 19:31 Sublimaze IVPUSH 03/07/19 19:29 75 mcg ONETIME ONE Administration Fentanyl 50 mcg 03/07/19 20:54 03/07/19 21:25 Sublimaze IVPUSH 03/07/19 20:55 50 mcg ONETIME ONE Administration Sodium Chloride 1,000 mls @ 999 mls/hr 03/07/19 19:06 03/07/19 19:08 Normal Saline IV 03/07/19 20:06 999 mls/hr .BOLUS ONE Administration Ceftriaxone Sodium 1,000 mg/ 100 mls @ 200 mls/hr 03/07/19 21:32 03/07/19 21: 38 Sodium Chloride IV 03/07/19 22:01 200 mls/hr ONETIME ONE Administration Lidocaine 700 mg 03/07/19 19:34 03/07/19 19:39 Lidoderm 5% TOP 03/07/19 19:35 700 mg ONETIME ONE Administration Lidocaine HCl Confirm 03/07/19 21:22 Xylocaine 2% Jelly Administered 03/07/19 21:23 Dose 10 ml .ROUTE .STK-MED ONE Lidocaine HCl Confirm 03/07/19 21:25 Xylocaine 2% Jelly Administered 03/07/19 21:26 Dose 10 ml .ROUTE .STK-MED ONE Metoclopramide HCl 10 mg 03/07/19 20:07 03/07/19 20:12 Reglan IVPUSH 03/07/19 20:08 10 mg ONETIME ONE Administration Morphine Sulfate 2 mg 03/07/19 19:03 03/07/19 19:38 Morphine IVPUSH 03/07/19 19:04 Not Given ONETIME ONE Norepinephrine Bitartrate Confirm 03/07/19 19:18 03/07/19 19:27 Levophed Administered 03/07/19 19:19 Not Given Dose 4 mg .ROUTE .STK-MED ONE Ondansetron HCl 4 mg 03/07/19 19:03 03/07/19 19:08 Zofran IV 03/07/19 19:04 4 mg ONETIME ONE Administration - Re-Assessments/Exams Free Text/Narrative Re-Assessment/Exam: 03/07/19 20:07 case discussed with GF but on C.C diversion. Finesse Hernandez @ ER kindly accepted pt. 03/07/19 20:31 EMS unable to transport due to weather. case discussed with Dr Davis Intensifist @ [facility] [place] who kindly accepted pt. Departure - Departure Time of Disposition: 20:08 Disposition: DC/Tfer to [facility] 02 Reason for Transfer *Q: Other Condition: Fair Clinical Impression: Elevated d-dimer, End stage renal failure on dialysis Hypotension Qualifiers: Hypotension type: unspecified hypotension type Qualified Code(s): I95.9 - Hypotension, unspecified Renal failure Qualifiers: Renal failure chronicity: chronic Chronic kidney disease stage: on chronic dialysis Qualified Code(s): N18.6 - End stage renal disease Forms: Interfacility Transfer EMTALA - My Orders Last 24 Hours: My Active Orders 03/07/19 18:51 EKG Documentation Completion [RC] STAT 03/07/19 19:30 Norepinephrine [Levophed] 4 mg Dextrose 5% in Water 246 ml IV TITRATE 03/07/19 20:30 Sodium Chloride 0.9% [Normal Saline] 1,000 ml IV ASDIRECTED 03/07/19 21:14 Urinary Catheter Assessment [RC] ASDIRECTED 03/07/19 21:15 Cristina Catheter Insertion [Insert Urinary Catheter] [OM.PC] Q24H Sodium Chloride 0.9% [Normal Saline] 1,000 ml IV ASDIRECTED 03/07/19 21:35 CULTURE URINE [RM] Stat 03/07/19 21:50 CULTURE BLOOD [BC] Stat - Assessment/Plan Last 24 Hours: My Active Orders 03/07/19 18:51 EKG Documentation Completion [RC] STAT 03/07/19 19:30 Norepinephrine [Levophed] 4 mg Dextrose 5% in Water 246 ml IV TITRATE 03/07/19 20:30 Sodium Chloride 0.9% [Normal Saline] 1,000 ml IV ASDIRECTED 03/07/19 21:14 Urinary Catheter Assessment [RC] ASDIRECTED 03/07/19 21:15 Cristina Catheter Insertion [Insert Urinary Catheter] [OM.PC] Q24H Sodium Chloride 0.9% [Normal Saline] 1,000 ml IV ASDIRECTED 03/07/19 21:35 CULTURE URINE [RM] Stat 03/07/19 21:50 CULTURE BLOOD [BC] Stat
[2019-03-07] MEDS ORDERED: Norepinephrine 4 MG/4 ML SDV ONE (19:18)
[2019-03-07] MEDS ORDERED: fentaNYL 100 MCG/2 ML SDV IVPUSH ONE (19:28)
[2019-03-07] MEDS ORDERED: Norepinephrine 4 MG in Dextrose 5% in Water 246 ML IV SCH ×2 (19:30)
[2019-03-07] MEDS ORDERED: Lidocaine 5% 700 MG Patch TOP ONE (19:34)
[2019-03-07] MEDS ORDERED: Metoclopramide 10 MG/2 ML SDV IVPUSH ONE (20:07)
[2019-03-07] MEDS ORDERED: Sodium Chloride 0.9% 1,000 ML IV SCH ×2 (20:30→21:15)
[2019-03-07 20:55] LABS: BASE EXCESS ARTERIAL -9 mmol/L ((-2)-(+3)); BICARBONATE,ARTERIAL 14.6 mmol/L (22-26); O2 DELIVERY DEVICE NON REBR MASK; O2 SATURATION ARTERIAL 93 % (95-100); PCO2 ARTERIAL 28 mmHg (35-45); PO2 ARTERIAL 76 mmHg (70-100)
[2019-03-07 20:59] LABS: O2 FLOW RATE 3
[2019-03-07] MEDS: fentaNYL 100 MCG/2 ML SDV IVPUSH ONE ×2 (20:59→21:25)
[2019-03-07 21:00] LABS: ALLEN TEST RB
[2019-03-07] MEDS ORDERED: Lidocaine 2% Jelly 10 ML Urojet ONE ×2 (21:22→21:25)
[2019-03-07] MEDS ORDERED: Acetaminophen 500 MG Tab PO ONE (21:31)
[2019-03-07 21:43] VITALS: BP 78/64; PULSE 152
== END 2019-03-07 22:12 ==
LOC: DL.ED 18:37
DX: I12.0 Hypertensive chronic kidney disease with stage 5 chronic kidney disease or end stage renal disease (principal); N18.6 End stage renal disease; I95.9 Hypotension, unspecified; R79.1 Abnormal coagulation profile; E66.9 Obesity, unspecified; Z79.01 Long term (current) use of anticoagulants; Z68.41 Body mass index [BMI] 40.0-44.9, adult; Z99.2 Dependence on renal dialysis
CPT/HCPCS: 36415; 36600; 71045; 80053; 80305; 81001; 82803; 82962; 83605; 83880; 84484; 85025; 85379; 87040; 87077; 87086; 87186; 93005; 96361; 96365; 96366; 96368; 96375; 96376; 99285; A9270; J0696; J2405; J2765; J3010; J7030; J7050; J7060; 99284; J2270